=== PATIENT | female | born 1995 | race Caucasian/White ===

== ENCOUNTER → 2023-05-17 | Outpatient (CLI) | payer OTHER ==
[2023-05-17 13:52] LABS: HEMATOCRIT 39.6 % (36.0-47.0); MEAN CORPUSCULAR HEMOGLOBIN 30.7 pg (27.0-33.0); MEAN CORPUSCULAR HGB CONC 32.8 g/dl (32.0-36.5); MEAN CORPUSCULAR VOLUME 93.4 fl (80.0-96.0); PLATELET COUNT, AUTOMATED 227 10^3/uL (150-450); RED BLOOD COUNT 4.24 10^6/uL (4.00-5.40); WHITE BLOOD COUNT 7.9 10^3/uL (4.0-10.0)
[2023-05-17 14:25] LABS: HIV 1&2 SCREEN NEGATIVE (NEGATIVE)
[2023-05-17 14:33] LABS: HEPATITIS C VIRUS ABY INDEX 0.06 INDEX (<0.8)
== END ==
LOC: M PLALAB 10:55
PROVIDERS: ATTEND Advanced Practice Midwife
DX: O09.292 Supervision of pregnancy with other poor reproductive or obstetric history, second trimester (principal); Z3A.00 Weeks of gestation of pregnancy not specified
CPT/HCPCS: 36415; 85027; 86762; 86780; 86803; 86850; 86900; 86901; 87340; 87389; G0463

== ENCOUNTER → 2023-06-13 | Outpatient (REF) | payer OTHER | LOC: M PLALAB 09:05 | PROVIDERS: ATTEND Advanced Practice Midwife | DX: Z34.92 Encounter for supervision of normal pregnancy, unspecified, second trimester (principal) ==

== ENCOUNTER → 2023-06-22 | Outpatient (CLI) | payer OTHER | LOC: M WHC 08:51 | PROVIDERS: ATTEND Advanced Practice Midwife | DX: O09.292 Supervision of pregnancy with other poor reproductive or obstetric history, second trimester (principal); O32.1XX0 Maternal care for breech presentation, not applicable or unspecified; Z3A.18 18 weeks gestation of pregnancy ==

== ENCOUNTER → 2023-07-28 | Outpatient (CLI) | payer OTHER | LOC: M WHC 09:54 | PROVIDERS: ATTEND Obstetrics & Gynecology | DX: Z36.2 Encounter for other antenatal screening follow-up (principal); Z3A.24 24 weeks gestation of pregnancy; O32.1XX0 Maternal care for breech presentation, not applicable or unspecified ==

== ENCOUNTER → 2023-08-14 | Outpatient (CLI) | payer OTHER ==
[2023-08-14 12:48] LABS: HEMOGLOBIN 12.1 g/dl (12.0-15.5); MEAN CORPUSCULAR HEMOGLOBIN 31.4 pg (27.0-33.0); MEAN CORPUSCULAR HGB CONC 33.6 g/dl (32.0-36.5); MEAN CORPUSCULAR VOLUME 93.5 fl (80.0-96.0); PLATELET COUNT, AUTOMATED 202 10^3/uL (150-450); RED BLOOD COUNT 3.85 10^6/uL (4.00-5.40); WHITE BLOOD COUNT 9.4 10^3/uL (4.0-10.0)
[2023-08-14 14:18] LABS: GC DNA AMPLIFICATION NEGATIVE (NEGATIVE)
== END ==
LOC: M PLALAB 09:15
PROVIDERS: ATTEND Obstetrics & Gynecology
DX: Z34.92 Encounter for supervision of normal pregnancy, unspecified, second trimester (principal)

== ENCOUNTER → 2023-08-24 | Outpatient (CLI) | payer OTHER | LOC: M LAB 07:30 | PROVIDERS: ATTEND Obstetrics & Gynecology | DX: O99.810 Abnormal glucose complicating pregnancy (principal); Z3A.00 Weeks of gestation of pregnancy not specified ==

== ENCOUNTER → 2023-10-16 | Outpatient (REF) | payer OTHER | LOC: M PLALAB 10:13 | PROVIDERS: ATTEND Obstetrics & Gynecology | DX: Z36.85 Encounter for antenatal screening for Streptococcus B (principal); Z3A.36 36 weeks gestation of pregnancy ==

== ENCOUNTER 2023-11-08 05:21 | Inpatient (IN) | payer OTHER ==
[~2023-11-08] VITALS: Ht 162.6 cm; Wt 95.3 kg
[2023-11-08] VITALS (9 sets, daily range): BP systolic 98–115; BP diastolic 51–70; TEMP 98; O2SAT 93–100
[~2023-11-08 05:21] MED LIST: PRENTAB53 PO; ZOLO100T PO
[2023-11-08] MEDS: LACTATED RINGER'S 1000 ML IV STA (06:00)
[2023-11-08] MEDS ORDERED: HOME MED LIST COMPLETE! XX SCH (06:05)
[2023-11-08 06:18] LABS: HEMATOCRIT 37.4 % (36.0-47.0); HEMOGLOBIN 12.3 g/dl (12.0-15.5); MEAN CORPUSCULAR HEMOGLOBIN 29.6 pg (27.0-33.0); MEAN CORPUSCULAR HGB CONC 32.9 g/dl (32.0-36.5); MEAN CORPUSCULAR VOLUME 89.9 fl (80.0-96.0); PLATELET COUNT, AUTOMATED 216 10^3/uL (150-450); RED BLOOD COUNT 4.16 10^6/uL (4.00-5.40)
[2023-11-08] MEDS: LR 1,000 ML IV SCH (06:32)
[2023-11-08] MEDS: ceFAZolin SOD 2 GM in IV 1 EA IV ONE (07:26)
[2023-11-08] MEDS: BICITRA 30ML SOLN UDC PO ONE (07:26)
[2023-11-08 07:31] LABS: HEPATITIS C VIRUS ABY INDEX < 0.02 INDEX (<0.8)
[2023-11-08] MEDS ORDERED: OXYTOCIN 30UNITS IN 0.9% NaCl 500ML IV BAG As Ordered ONE (08:14)
[2023-11-08] MEDS ORDERED: MORPHINE PRES-FREE INJ 10 MG/10 ML VIAL As Ordered ONE (08:14)
[2023-11-08] MEDS ORDERED: ONDANSETRON 4MG 2ML VIAL As Ordered ONE (08:14)
[2023-11-08] MEDS ORDERED: KETOROLAC 60MG 2ML VIAL As Ordered ONE (08:14)
[2023-11-08] MEDS ORDERED: ACETAMINOPHEN 1000MG 100ML IV BAG As Ordered ONE (08:14)
[2023-11-08] MEDS ORDERED: NALOXONE INJ 0.4MG/1ML VIAL IV PRN ×2 (08:50)
[2023-11-08] MEDS ORDERED: fentaNYL 100 MCG/2 ML INJECTION IV PRN (08:50)
[2023-11-08] MEDS ORDERED: **NOTE PATIENT COMMENT** MISC XX SCH (08:50)
[2023-11-08] MEDS ORDERED: LR 1,000 ML IV SCH (08:50)
[2023-11-08] MEDS ORDERED: METOCLOPRAMIDE INJ 10MG/2ML VIAL IV PRN (08:50)
[2023-11-08] MEDS ORDERED: diphenhydrAMINE 50MG/ML VIAL IV PRN (08:50)
[2023-11-08] MEDS ORDERED: MEPERIDINE 25 MG/ML 1ML VIAL IV PRN (08:50)
[2023-11-08] MEDS ORDERED: SLF 3 ML SYR IV SCH (08:50)
[2023-11-08] MEDS ORDERED: oxyCODONE 5MG TAB PO PRN (08:50)
[2023-11-08] MEDS ORDERED: ONDANSETRON 4MG 2ML VIAL IV PRN (08:50)
[2023-11-08] MEDS ORDERED: RHO(D) IMMUNE GLOBULIN/MALTOSE 500MCG(2500IU)/2.2ML VIAL (WINRHO) IM SCH (08:55)
[2023-11-08] MEDS: PRENATAL VITAMINS CHEWABLE TABLET PO SCH (09:00)
[2023-11-08] MEDS ORDERED: SERTRALINE HCL 50 MG TAB PO SCH (09:00)
[2023-11-08] MEDS ORDERED: COLA100C5 PO (09:01)
[2023-11-08] MEDS ORDERED: IBUP-1022 PO (09:01)
[2023-11-08] MEDS ORDERED: OXYC-517 PO (09:01)
[2023-11-08] MEDS ORDERED: ACET-683 PO (09:01)
[2023-11-08] MEDS: OXYTOCIN DRIP 30 UNITS in IV 1 EA IV SCH (09:06)
[2023-11-08] MEDS ORDERED: oxyCODONE 5MG TAB As Ordered ONE (09:38)
[2023-11-08] MEDS: oxyCODONE 5MG TAB PO ONE (09:39)
[2023-11-08] MEDS: KETOROLAC 30 MG/ML 1ML VIAL IV SCH (14:42)
[2023-11-08] MEDS: ACETAMINOPHEN 500 MG TAB PO SCH (14:43)
[2023-11-08] MEDS: diphenhydrAMINE 50MG/ML VIAL IV PRN (19:35)
[2023-11-08] MEDS: SERTRALINE HCL 50 MG TAB PO SCH (21:15)
[2023-11-09 02:00] VITALS: BP 110/50; O2SAT 95
[2023-11-09 05:42] VITALS: BP 103/59; O2SAT 100
[2023-11-09 08:50] LABS: HEMATOCRIT 31.4 % (36.0-47.0); MEAN CORPUSCULAR HEMOGLOBIN 30.5 pg (27.0-33.0); MEAN CORPUSCULAR HGB CONC 32.5 g/dl (32.0-36.5); PLATELET COUNT, AUTOMATED 159 10^3/uL (150-450); RED BLOOD COUNT 3.34 10^6/uL (4.00-5.40); WHITE BLOOD COUNT 9.2 10^3/uL (4.0-10.0)
[2023-11-09 08:54] LABS: HEMOGLOBIN 10.2 g/dl (12.0-15.5)
[2023-11-09] MEDS: IBUPROFEN 600MG TAB PO SCH (09:19)
[2023-11-09 10:00] VITALS: BP 106/52; O2SAT 97
[2023-11-09] MEDS: oxyCODONE 5MG TAB PO PRN (11:21)
[2023-11-09 14:00] VITALS: BP 118/63; O2SAT 97
[2023-11-09 18:00] VITALS: BP 121/59; O2SAT 97
[2023-11-09] MEDS: DOCUSATE SODIUM 100MG CAPSULE PO PRN (21:35)
[2023-11-09 22:00] VITALS: BP 108/54; O2SAT 96
[2023-11-10 02:00] VITALS: BP 112/65; O2SAT 96
[2023-11-10] MEDS: SIMETHICONE 80MG CHEW TAB PO PRN (03:18)
[2023-11-10 06:00] VITALS: BP 108/57; O2SAT 96
[2023-11-10] MEDS: MEASLES,MUMPS,RUBELLA VACCINE INJ (MMR-II) SC.IMMUN ONE (09:00)
[2023-11-10 10:00] VITALS: BP 118/56; O2SAT 96
[2023-11-10 14:00] VITALS: BP 128/61; O2SAT 96
[2023-11-10] MEDS: oxyCODONE 5MG TAB PO PRN (18:45)
[2023-11-10 18:48] VITALS: BP 121/58; O2SAT 96
[2023-11-11 05:48] VITALS: BP_SYST 109; BP_SYST 113; BP_DIAS 54; BP_DIAS 55; O2SAT 97
[2023-11-11] MEDS: diphenhydrAMINE 25MG CAP PO ONE (10:06)
[2023-11-11] MEDS ORDERED: SERT50TA29 PO (10:55)
== END 2023-11-11 12:00 | disposition home or self-care (01) | DRG 773 ==
LOC: M LDI 05:21 → M OBS 10:15
PROVIDERS: ADMIT Obstetrics & Gynecology; ATTEND Obstetrics & Gynecology
PROC: 10D00Z1 Extraction of Products of Conception, Low, Open Approach (ICD-10-PCS; principal; 2023-11-08 07:30)
DX: O26.893 Other specified pregnancy related conditions, third trimester (principal); N80.101 Endometriosis of right ovary, unspecified depth; N83.8 Other noninflammatory disorders of ovary, fallopian tube and broad ligament; Z3A.39 39 weeks gestation of pregnancy; Z37.0 Single live birth